=== PATIENT | male | born 1980 | race Hispanic/Latino ===

== ENCOUNTER 2021-02-01 21:18 | Emergency (ER) | payer MEDICAID ==
[2021-02-01] MEDS ORDERED: ATOR40TA71 PO (21:23)
[2021-02-01] MEDS ORDERED: SACU1TAB4 PO (21:25)
[2021-02-01] MEDS ORDERED: METF500S7 PO (21:25)
[2021-02-01] MEDS ORDERED: FENO48TA10 PO (21:26)
[2021-02-01 21:55] LABS: BASOPHILS % (AUTO) 0.4 % (0.0-5.0); EOSINOPHILS % (AUTO) 1.2 % (0.0-8.0); HEMATOCRIT 40.6 % (42-54); LYMPHOCYTES % (AUTO) 29.2 % (21.0-51.0); MEAN CORPUSCULAR HEMOGLOBIN 30.9 pg (27.0-33.0); MEAN CORPUSCULAR HGB CONC 34.2 g/dL (32.0-36.0); MEAN CORPUSCULAR VOLUME 90.2 fL (79-99); MONOCYTES % (AUTO) 5.1 % (3.0-13.0); NEUTROPHILS % (AUTO) 63.9 % (40.0-77.0); PLATELET COUNT (AUTO) 280 K/uL (130-400); RED CELL DISTRIBUTION WIDTH 13.4 % (11.0-15.5)
[2021-02-01 22:05] LABS: CREATININE 1.9 mg/dL (0.5-1.5); POTASSIUM 3.8 mmol/L (3.5-5.1)
[2021-02-01 22:09] LABS: ALBUMIN 3.2 g/dL (3.5-5.0); BILIRUBIN,TOTAL 0.4 mg/dL (0.2-1.0); TOTAL PROTEIN, SERUM 7.2 g/dL (6.0-8.3)
[2021-02-02] MEDS ORDERED: NITROGLYCERIN 1GM OINT 1 INCH/1GM TD ONE (01:30)
[2021-02-02] MEDS ORDERED: LISINOPRIL 20 MG TABLET PO SCH (01:30)
[2021-02-02] MEDS ORDERED: LISINOPRIL 20 MG TABLET PO ONE (01:30)
[2021-02-02 01:52] VITALS: BP 132/86
[2021-02-02] MEDS ORDERED: FENO48TA10 PO (02:03)
[2021-02-02] MEDS ORDERED: METF500S7 PO (02:03)
[2021-02-02] MEDS ORDERED: SACU1TAB4 PO (02:03)
[2021-02-02] MEDS ORDERED: ATOR40TA71 PO (02:03)
[2021-02-02] MEDS ORDERED: AMOX-429 PO (02:05)
[2021-02-02] MEDS ORDERED: AMOX/CLAV 500/125MG TAB PO ONE (02:30)
== END 2021-02-02 03:22 | disposition home or self-care (01) ==
LOC: EDH 21:18
DX: I11.0 Hypertensive heart disease with heart failure (principal); I50.9 Heart failure, unspecified; R42 Dizziness and giddiness; Z20.822 Contact with and (suspected) exposure to COVID-19; R91.8 Other nonspecific abnormal finding of lung field; E11.9 Type 2 diabetes mellitus without complications; E78.00 Pure hypercholesterolemia, unspecified; I25.2 Old myocardial infarction; Z79.84 Long term (current) use of oral hypoglycemic drugs; Z79.899 Other long term (current) drug therapy
CPT/HCPCS: 36415; 71045; 80053; 83735; 83880; 84484; 85025; 87635; 93005; 99285; C9803

== ENCOUNTER 2021-06-26 05:48 | Day surgery (SDC) | payer MEDICAID ==
[~2021-06-26] VITALS: Ht 182.9 cm; Wt 142.4 kg
[2021-06-26] VITALS (10 sets, daily range): BP systolic 114–145; BP diastolic 80–97
[~2021-06-26 05:48] MED LIST: AMOX-429 PO; ATOR40TA71 PO; FENO48TA10 PO; METF500S7 PO; SACU1TAB4 PO
[2021-06-26] MEDS ORDERED: PROPOFOL 10 MG/ML 20ML VIAL IV ONE (07:31)
[2021-06-26] MEDS ORDERED: CARV6.25 PO (09:32)
[2021-06-26] MEDS ORDERED: 0.9%NACL 1000ML 1,000 ML IV ONE (10:42)
== END 2021-06-26 09:45 | disposition home or self-care (01) ==
LOC: ENDO 05:48 → DAH 05:48 → ENDO 09:45
PROVIDERS: ATTEND Surgery
DX: K21.9 Gastro-esophageal reflux disease without esophagitis (principal); K29.70 Gastritis, unspecified, without bleeding; E66.01 Morbid (severe) obesity due to excess calories; E11.9 Type 2 diabetes mellitus without complications; I11.0 Hypertensive heart disease with heart failure; I25.2 Old myocardial infarction; I50.9 Heart failure, unspecified; Z79.899 Other long term (current) drug therapy; Z98.890 Other specified postprocedural states; Z87.891 Personal history of nicotine dependence; Z68.41 Body mass index [BMI] 40.0-44.9, adult
CPT/HCPCS: 43239; 71045; 82948; 87635; 88305; 88342; 93005; A4215 ×2; A4221; A4222; A4223; A4606; A4620; A4663; C9803; J3490; J7030; J2704